=== PATIENT | male | born 1995 | race Caucasian/White ===

== ENCOUNTER 2018-11-28 17:16 | Emergency (ER) | payer SELFPAY ==
[~2018-11-28 17:16] MED LIST: ELIMITE60 GM EX; NO; PENICILLN VK500 MG PO
[2018-11-28] MEDS ORDERED: AMOXICILLIN875 MG PO (18:35)
[2018-11-28 18:40] VITALS: BP 128/68
== END 2018-11-28 18:40 | disposition home or self-care (01) | DRG 159 ==
LOC: ED 17:16
DX: K04.7 Periapical abscess without sinus (principal); K08.89 Other specified disorders of teeth and supporting structures; R68.84 Jaw pain